=== PATIENT | female | born 1980 | race Caucasian/White ===

== ENCOUNTER 2018-05-28 01:52 | Emergency (ER) | payer OTHER ==
[~2018-05-28] VITALS: Ht 162.6 cm; Wt 104.8 kg
[2018-05-28 02:15] VITALS: Ht 162.6 cm; Wt 104.8 kg
[2018-05-28 04:02] VITALS: BP 130/91
== END 2018-05-28 04:19 | disposition home or self-care (01) ==
LOC: ED 01:52
DX: S90.122A Contusion of left lesser toe(s) without damage to nail, initial encounter (principal); F17.210 Nicotine dependence, cigarettes, uncomplicated; W22.8XXA Striking against or struck by other objects, initial encounter; Y93.89 Activity, other specified; Y92.89 Other specified places as the place of occurrence of the external cause; Y99.8 Other external cause status
CPT/HCPCS: J1885; Q0092